=== PATIENT | female | born 1995 | race Caucasian/White ===

== ENCOUNTER 2020-06-07 16:33 | Emergency (ER) | payer OTHER, SELFPAY ==
[2020-06-07 16:48] VITALS: BP 126/75; PULSE 81; RESP 16; TEMP 37.3; O2SAT 99
--- NOTE | 2020-06-07 16:59 | ED.EAR ---
HPI - Ear Problem General Chief complaint: Ear Stated complaint: possible fungus in right ear Source: patient Mode of arrival: ambulatory Limitations: no limitations History of Present Illness HPI Narrative: Patient presents for evaluation of right-sided ear pain since the end of April. She indicates she had some muffled hearing yesterday but cleaned her ear out and that has since resolved. She denies any tinnitus or drainage from the ear. She states she had a Covid test performed on 05/26/2020 that was resulted on 05/30/2020 is positive. She previously had fever and a dry cough. She states she still has a lingering dry cough but denies fever. She has been quarantining at home. Related Data Allergies Allergy/AdvReac Type Severity Reaction Status Date / Time No Known Allergies Allergy Verified 06/07/20 16:58 Review of Systems Review of Systems: Narrative: CONSTITUTIONAL: Denies fever, chills, or sweats. EYES: Denies visual changes, redness, or discharge. ENT: Denies rhinorrhea, congestion, sore throat. Reports right ear pain CARDIOVASCULAR: Denies chest pain, palpitations, or edema. RESPIRATORY: Denies dyspnea. Reports cough GASTROINTESTINAL: Denies abdominal pain, nausea, vomiting, or diarrhea. GENITOURINARY: Denies dysuria or hematuria. SKIN: Denies rash or itching. MUSCULOSKELETAL: Denies back pain, joint pain, or myalgia. NEUROLOGIC: Denies headache, numbness, dizziness, or weakness. PSYCHIATRIC: Denies anxiety or depression. PMFSH Past Medical History Medical History (Updated 06/07/20 @ 17:05 by LARISSA Rice, ) Amenorrhea Obesity Surgical History Surgical History No pertinent past surgical history Family History Family History Mother No pertinent past medical history Father No pertinent past medical history Social History Social History Smoking status: Never smoker Alcohol intake: never Substance use: never Gender identity (if verbalized by the patient): Female Spiritual care concerns: No Exam Narrative: Exam Narrative: GENERAL: Well-appearing, well-nourished, and in no acute distress. HEAD: Normocephalic, atraumatic. EYES: PERRLA and EOMI. ENT: Nares clear, no rhinorrhea or epistaxis. Mucous membranes moist. Oropharynx without tonsillar hypertrophy exudate or other lesions. Left TM pearly singh nonbulging. Right ear canal is ceruminous. I cannot visualize the right TM which is erythematous, retracted with middle ear fluid present NECK: Supple. No adenopathy or masses. No carotid bruits or JVD CHEST: Clear to auscultation. No respiratory distress. No wheezes rales or rhonchi HEART: Regular rate and rhythm. No murmur heard. Normal peripheral pulses. ABDOMEN: Soft, nontender, nondistended, normal active bowel sounds. EXTREMITIES: Normal range of motion. No edema. SKIN: Warm, dry, no rash. NEURO: No focal deficits. Alert and oriented x3. PSYCH: Normal mood and affect. Course Course Emergency Course: This is a 24-year-old female with known recent positive Covid testing that presents with more than 2-week history of right-sided otalgia. Her symptoms related to Covid are improving. Does not appears any diagnostics are necessary at this time. Her physical exam is consistent with otitis media. Will prescribe Augmentin and Debrox have patient follow-up outpatient for further evaluation and treatment Vital Signs Vital signs: Vital Signs Temperature 37.3 C 06/07/20 16:48 Pulse Rate 81 06/07/20 16:48 Respiratory Rate 16 06/07/20 16:48 Blood Pressure 126/75 06/07/20 16:48 Pulse Oximetry 99 06/07/20 16:48 Temperature 37.3 C 06/07/20 16:48 Pulse Rate 81 06/07/20 16:48 Respiratory Rate 16 06/07/20 16:48 Blood Pressure 126/75 06/07/20 16:48 Pulse Oximetry 99 06/07/20
== END 2020-06-07 17:12 | disposition home or self-care (01) ==
PROVIDERS: Emergency Provider Nurse Practitioner
DX: H61.21 Impacted cerumen, right ear (principal); H66.90 Otitis media, unspecified, unspecified ear; E66.9 Obesity, unspecified; Z68.41 Body mass index [BMI] 40.0-44.9, adult
CPT/HCPCS: 99203; G0463

== ENCOUNTER 2020-08-06 20:22 | Emergency (ER) | payer OTHER, SELFPAY ==
[2020-08-06 20:25] VITALS: BP 121/80; PULSE 75; RESP 18; TEMP 36.4; O2SAT 98
[2020-08-06 20:55] LABS: Add Urine Microscopic? YES; Amorphous Sediment Urine Few; Appearance Urine Clear (Clear); Bacteria Urine Trace /hpf; Bilirubin Urine Negative (Negative); Blood Urine 3+ (Negative); Color Urine Yellow (Yellow); Glucose Urine UA Negative (Negative); Ketones Urine Negative (Negative); Leukocyte Esterase Ur 2+ LEU/UL (Negative); Mucus Urine Rare /lpf; Nitrate Urine Negative (Negative); Protein Urine 1+ mg/dL (Negative); Specific Grav Ur 1.026 (1.001-1.035); Squamous Epithelial Cell Urine Moderate /hpf (Few); Urobilinogen Urine Negative mg/dL (<2.0); WBC Urine 16-20 /hpf
--- NOTE | 2020-08-06 21:07 | ED.FEMALEGU ---
HPI - Female Genitourinary General Chief complaint: Urogenital-Female Stated complaint: noticed blood in urine starting today Time Seen by Provider: 08/06/20 20:30 Source: patient Mode of arrival: ambulatory Limitations: no limitations History of Present Illness HPI Narrative: This patient is 25 year old female who presents for evaluation of blood in her urine. She reports early today around 2p m she noticed her urine was slightly darker than normal. She reports she urinated again a few hours later, and she noticed what appeared to be small specks of red tissue in the toilet. She also reports seeing pink tinge in her pantyliner. She does not think it is vaginal in source. She has not had a menstrual cycle in 7 years from an unknown cause. She is starting to get this evaluated now because she finally has insurance. She denies abdominal pain, nausea, vomiting , or fever. She states she may have mild burning with urination. She denies any other complaints. Related Data Allergies Allergy/AdvReac Type Severity Reaction Status Date / Time No Known Allergies Allergy Mild Unverified 05/05/09 04:55 Review of Systems Review of Systems: All systems reviewed & are unremarkable except as noted in HPI and below PMFSH Past Medical History Medical History (Updated 08/07/20 @ 00:01 by Background Daemon) Abnormal menstrual cycle Surgical History Surgical History (Updated 08/06/20 @ 21:12 by Arielle Medrano MD) H/O adenoidectomy Family History Family History (Updated 03/18/14 @ 07:13 by DOCTOR UNKNOWN) Mother Hypertension Other Diabetes mellitus Social History Social History Smoking status: Never smoker Exam Const: General: alert Orientation/consciousness: patient oriented x3 Eyes: EOM: EOMs intact bilaterally Resp: Effort & Inspection: normal respiratory effort Auscultation: clear to auscultation bilaterally Cardio: Rate: regular rate Rhythm: regular rhythm Heart sounds: no murmurs GI: GI Palp: Yes Soft to palpation, No Tenderness to palpation present (GI) and No Guarding due to palpation present (GI) Auscultation: normal bowel sounds : Other: large clitorus, small vaginal meatus so unable to visualize cervix. there does appear to be bright red blood coming from meatus Course Reevaluation(s) Reevaluation #1: I have discussed with patient that her blood appears to be vaginal . She was given antibiotics due to abnormal urinalysis. Date: 08/06/20 Time: 22:19 Vital Signs Vital signs: Vital Signs Temperature 97.6 F 08/06/20 20:25 Pulse Rate 75 08/06/20 20:25 Respiratory Rate 18 08/06/20 20:25 Blood Pressure 121/80 08/06/20 20:25 Pulse Oximetry 98 08/06/20 20:25 Temperature 97.6 F 08/06/20 20:25 Pulse Rate 83 08/06/20 22:26 Respiratory Rate 20 08/06/20 22:26 Blood Pressure 136/77 08/06/20 22:26 Pulse Oximetry 95 08/06/20 22:26 MDM - Female Genitourinary Lab Data Result diagrams: 08/06/20 21:37 08/06/20 21:37 Labs: Lab Results 08/06/20 08/06/20 08/06/20 Range/Units 20:44 21:37 21:37 WBC 10.9 H (4.5-10.0) K/mm3 RBC 5.73 H (4.2-5.4) M/mm3 Hgb 15.5 H (12.0-15.0) g/dL Hct 46.9 (37.0-47.0) % MCV 81.8 (80-100) fl MCH 27.1 (26-34) pg MCHC 33.0 (32-36) g/dl RDW 13.8 (11.5-14.5) % Plt Count 416 H (150-375) k/mm3 MPV 9.9 (7.4-10.4) fl Immature Gran % (Auto) 0.3 (0-0.5) % Neut % (Auto) 61.0 (45.5-73.1) % Lymph % (Auto) 24.3 (18.3-44.2) % Haines % (Auto) 9.2 H (2.6-8.5) % Eos % (Auto) 4.2 (0-4.4) % Baso % (Auto) 1.0 (0.2-1.2) % Lymph # (Auto) 2.65 (0.9-3.2) K/mm3 Haines # (Auto) 1.0 H (0.1-0.6) K/mm3 Eos # (Auto) 0.5 H (0-0.3) K/mm3 Baso # (Auto) 0.1 (0.0-0.1) K/mm3 Abs Immat Gran (auto) 0.03 (0.00-0.031) K/mm3 Absolute Neuts (auto) 6.7 (1.3-6.7) K/mm3 Absolute Nucleated RBC 0.0 (0.0-0.012) K/mm3 Nucle
[2020-08-06] MEDS: CEPHALEXIN 500 MG CAPSULE PO (21:10)
--- NOTE | 2020-08-06 21:19 | PC.NURSE ---
patient medicated as ordered. advised to take remaining clothing off. set up for pelvic exam.
--- NOTE | 2020-08-06 21:42 | PC.NURSE ---
pelvic exam done. bed changed. patient given new blankets and ice water. blood sent to lab. denies other needs. has call light in reach.
[2020-08-06 21:46] LABS: Basophils Absolute Auto 0.1 K/mm3 (0.0-0.1); Eosinophils Absolute Auto 0.5 K/mm3 (0-0.3); Eosinophils Percent Auto 4.2 % (0-4.4); Hematocrit 46.9 % (37.0-47.0); Hemoglobin 15.5 g/dL (12.0-15.0); Immature Granulocyte Absolute 0.03 K/mm3 (0.00-0.031); Immature Granulocyte Percent A 0.3 % (0-0.5); Lymphocytes Absolute Auto 2.65 K/mm3 (0.9-3.2); Lymphocytes Percent Auto 24.3 % (18.3-44.2); Mean Corpuscular Hemoglobin 27.1 pg (26-34); Mean Corpuscular Volume 81.8 fl (80-100); Mean Platelet Volume 9.9 fl (7.4-10.4); Monocytes Percent Auto 9.2 % (2.6-8.5); Neutrophils Absolute Auto 6.7 K/mm3 (1.3-6.7); Platelet Count Result 416 k/mm3 (150-375); Red Blood Count 5.73 M/mm3 (4.2-5.4); Red Cell Distribution Width 13.8 % (11.5-14.5); White Blood Count 10.9 K/mm3 (4.5-10.0)
[2020-08-06 21:56] LABS: INR 0.9; Prothrombin Time 12.5 Seconds (11.1-14.7)
[2020-08-06 21:57] LABS: Partial Thromboplastin Time 30.6 SECONDS (22.3-36.8)
[2020-08-06 21:58] LABS: Alanine Aminotransferase 60 U/L (4-35); Albumin Level 4.6 g/dL (3.5-5.1); Alkaline Phosphatase 85 U/L (38-126); Anion Gap 7 mmol/L (8-16); Aspartate Amino Transferase 47 U/L (14-36); Bilirubin,Total 0.9 mg/dL (0.2-1.3); Blood Urea Nitrogen 12 mg/dL (7-17); Calcium 9.6 mg/dL (8.4-10.2); Carbon Dioxide 30 mmol/L (22-30); Chloride 103 mmol/L (98-107); Estimated CRCL calculation 88 ml/min; Estimated Glomerular Filt Rate > 60; Glucose 84 mg/dL (65-105); Potassium 4.1 mmol/L (3.4-5.0); Sodium 140 mmol/L (137-145)
[2020-08-06 22:26] VITALS: BP 136/77; PULSE 83; RESP 20; O2SAT 95
== END 2020-08-06 23:03 | disposition home or self-care (01) ==
PROVIDERS: Emergency Medicine; Emergency Provider General Practice
DX: N39.0 Urinary tract infection, site not specified (principal); N93.9 Abnormal uterine and vaginal bleeding, unspecified
CPT/HCPCS: 36415; 80053; 81001; 81025; 85025; 85610; 85730; 87086; 87088; 99284; A9270

== ENCOUNTER 2021-07-07 10:45 | Emergency (ER) | payer OTHER, SELFPAY ==
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
[2021-07-07 11:06] VITALS: BP 128/82; PULSE 77; RESP 20; TEMP 36.6; O2SAT 100
--- NOTE | 2021-07-07 14:25 | ECG_ITS ---
Measurements Intervals [place] Rate: 74 P: 24 LA: 134 QRS: 30 QRSD: 81 T: 34 QT: 363 QTc: 404 Interpretive Statements SINUS RHYTHM BASELINE ARTIFACT- I, III NORMAL ECG Electronically Signed On 07-07-2021 20:08:25 FROG SHAKER by John Sinha D.O.
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
[2021-07-07] MEDS: ACETAMINOPHEN 325 MG TABLET 650 MG PO (15:06)
[2021-07-07 15:30] VITALS: BP 130/79; PULSE 78; RESP 20; O2SAT 100
== END 2021-07-07 15:32 | disposition home or self-care (01) ==
PROVIDERS: Emergency Provider Emergency Medicine; PCP Family Medicine
DX: M25.562 Pain in left knee (principal); M25.521 Pain in right elbow; R07.89 Other chest pain; E66.9 Obesity, unspecified; Z68.41 Body mass index [BMI] 40.0-44.9, adult; V44.5XXA Car driver injured in collision with heavy transport vehicle or bus in traffic accident, initial encounter
CPT/HCPCS: 71046; 73080; 73564; 93005; 99284; A9270

== ENCOUNTER 2024-11-02 23:12 | Emergency (ER) | payer OTHER, SELFPAY ==
[2024-11-02 23:12] VITALS: BP 127/67; PULSE 66; RESP 17; TEMP 36.7; O2SAT 99
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
--- OUTSIDE RECORDS SUMMARY | 2024-11-02 23:14 | XMS_ITS | Clinical Summary ---
Author Organization [facility] Address [address] [place] [address] Care Team Providers Care Finance Business Partner Name Role Phone Ariel Reyes MD Primary Care Provider [phone] Source Comments [facility],non-owned Affiliates and Associated Physician Practices is amultiple site organization consisting of ambulatory clinics and hospital sitesin [place], [place], [place] and [place]. This disclosure is being madepursuant to the Care Everywhere program and may not contain all information available regarding this patient. Last updated 18.[facility] [place] Allergies Active Allergy Reactions Criticality Noted Date Comments Spironolactone Shortness of Breath High 06/03/2024 Medications * Be aware that medications may not be up to date on this document. Alwaysverify current medications with the patient. dextran 70-hypromellose (Artificial Tears) 0.1-0.3 % SOLN 2 drops by Ophthalmic route as needed 30 mL Active Social History Tobacco Use Types Packs/Day Years Used Date Smoking Tobacco: Never Smokeless Tobacco: Never Tobacco Cessation:Counseling Given: Not Answered Alcohol Use Standard Drinks/Week Comments Yes 0 (1 standard drink = 0.6 oz pur e alcohol) social AUDIT-C Answer Date Recorded Q1: How often do you have a drink containing alc ohol? Monthly or less 06/03/2024 Q2: How many drinks containi ng alcohol do you have on a typical day when you are drinking? 1 or 2 06/03/2024 Q3: How often do you have si x or more drinks on one occasion? Never 06/03/2024 Comments Unknown Sex and Gender Information Value Date Recorded Sex Assigned at Not on file Legal Sex Female 5:36 AM ICING AND GLAZE MAKER Gender Identity Not on file Sexual Orientation Not on file Last Filed Vital Signs Vital Sign Reading Time Taken Comments Blood Pressure 126/62 06/03/2024 10:55 PM ICING AND GLAZE MAKER Pulse 82 06/03/2024 10:55 PM ICING AND GLAZE MAKER Temperature 36.4 C (97.6 F) 06/03/2024 10:55 PM ICING AND GLAZE MAKER Respiratory Rate 17 06/03/2024 10:55 PM ICING AND GLAZE MAKER Oxygen Saturation 98% 06/03/2024 10:55 PM ICING AND GLAZE MAKER Inhaled Oxygen Concentration - - Weight 113.4 kg (250 lb) 06/03/2024 10:55 PM ICING AND GLAZE MAKER Height 165.1 cm (5' 5 ) 06/03/2024 10:55 PM ICING AND GLAZE MAKER Body Mass Index 41.6 06/03/2024 10:55 PM ICING AND GLAZE MAKER Plan of Treatment Health Maintenance Due Date Last Done Comments PAP SMEAR 1994 HIV SCREENING 2009 HEPATITIS C SCREENING 07/04/2012 DTAP/TDAP/TD VACCINES (1 - Tdap) 2013 HEPATITIS B VACCINE (1 of 3 - 19+ 3-dose series) 2013 COVID-19 VACCINE (3 - 2023-2 5 season) 2024 03/20/2021, 02/22/2021 DEPRESSION SCREENING 07/22/2024 INFLUENZA VACCINE (Season Ended) 2025 ZOSTER VACCINE (1 of 2) 2044 HIB VACCINE Aged Out No longer eligi ble based on patient's age to complete this topic HPV VACCINE Aged Out No longer eligi ble based on patient's age to complete this topic MENINGOCOCCAL (Group B) VACCINE SHARED DECISION-MAKING Aged Out No longer eligible based on patient's age to complete this topic MENINGOCOCCAL GROUPS A/C/Y/W VACCINE Aged Out No longer eligible b ased on patient's age to complete this topic PNEUMOCOCCAL VACCINE Aged Out No long er eligible based on patient's age to complete this topic Insurance [facility] [employer] Care Teams Finance Business Partner Relationship Specialty Start Date End Date Ariel Reyes MD [address] [address] PCP - General Family Medicine 06/04/24
--- OUTSIDE RECORDS SUMMARY | 2024-11-02 23:14 | XMS_ITS | Clinical Summary ---
Author Organization [facility] Address [address] [place] [address] Care Team Providers Care Machine Puller And Laster Name Role Phone Provider, None Primary Care Provider Unavailabl e Allergies Active Allergy Reactions Criticality Noted Date Comments Spironolactone Anaphylaxis 02/13/2023 Medications No known medications Active Problems No known active problems Social History Tobacco Use Types Packs/Day Years Used Date Smoking Tobacco: Never Assessed Comments No Sex and Gender Information Value Date Recorded Sex Assigned at Not on file Legal Sex Female 2:31 PM SUPERINTENDENT TRANSPORTATION Gender Identity Not on file Sexual Orientation Not on file Last Filed Vital Signs Vital Sign Reading Time Taken Comments Blood Pressure 119/75 02/13/2023 5:40 PM CDT Pulse 82 02/13/2023 5:40 PM CDT Temperature 36.4 C (97.6 F) 02/13/2023 5:40 PM CDT Respiratory Rate 18 02/13/2023 5:40 PM CDT Oxygen Saturation 98% 02/13/2023 5:40 PM CDT Inhaled Oxygen Concentration - - Weight 100.7 kg (222 lb) 02/13/2023 5:40 PM CDT Height 153.7 cm (5' 0.5 ) 02/13/2023 5:40 PM CDT Body Mass Index 42.64 02/13/2023 5:40 PM CDT Plan of Treatment Health Maintenance Due Date Last Done Comments Hepatitis C Virus (HCV) Screening 1994 Pap Smear 2015 Influenza Immunization (#1) 2024 SARS-COV-2 Immunization ( season) 2024 03/20/2021, 02/22/2021 Cervical Cancer Screening (CCS) 2024 HPV/Cotest 2024 Respiratory Syncytial Virus (RSV) Immunization (Adult) (1 - 1-dose 75+ series) 2069 Hepatitis B Immunization Completed 995, 1994, 1994 DTaP/Tdap/Td Immunization Discontinued 2018, 07/24/1996, 07/11/1995, Additional history exists TdaP Immunization Completed 06/16/2019 Meningococcal Immunization (ACWY) Aged Out No longer eligible based on patient's age to complete this topic Pneumococcal Immunization Combined Aged Out No longer eligible based on patient's age to complete this topic Rotavirus Immunization Aged Out No lo nger eligible based on patient's age to complete this topic Insurance Care Teams Machine Puller And Laster Relationship Specialty Start Date End Date Provider, None [place] PCP - General 02/20/23
--- NOTE | 2024-11-03 00:36 | ED_ITS ---
HPI - Wound/Laceration General Chief Complaint: Wound/Laceration Stated Complaint: cat bite Time Seen by Provider: 11/03/24 00:15 Source: patient Mode of arrival: ambulatory Limitations: no limitations History of Present Illness HPI narrative: This is a 29-year-old female who presents to the ED for chief complaint of possible cat bite to the lip and chin today. Patient states she was with her friend and her friend's cat nipped at her lip today while she was trying to give a hug. States that she was not sure if the wound was deep to the lip. Denies any further site of injury. Related Data Home Medications ?Medication ?Instructions ?Recorded ?Confirmed ?Last Taken ?Type dextroamphetamine-amphetamine 10 10 mg PO DAILY 02/28/24 04/29/24 Unknown History mg tablet (Adderall) norethindrone 1 mg-ethinyl 1 tablet PO DAILY 02/28/24 04/29/24 Unknown History estradiol 20 mcg (24)-iron 75 mg (4) tablet (Blisovi 24 Fe) Allergies Allergy/AdvReac Type Severity Reaction Status Date / Time spironolactone Allergy Intermediate Difficulty Verified 11/02/24 23:35 Breathing Review of Systems Review of Systems: All systems as dictated in HPI [facility] Past Medical History Medical History Abnormal menstrual cycle Amenorrhea Bloating GERD (gastroesophageal reflux disease) IBS (irritable bowel syndrome) Obesity Surgical History Surgical History H/O adenoidectomy No pertinent past surgical history Family History Family History Mother No pertinent past medical history Father No pertinent past medical history Mother Hypertension Other Diabetes mellitus Social History Social History Smoking status: Never smoker Alcohol intake: never Substance use: never Gender identity (if verbalized by the patient): Female Spiritual care concerns: No Exam Narrative: GENERAL: Well-appearing, well-nourished, and in no acute distress. ENT: Mild very superficial abrasions to the lower lip and chin. No evidence of deep puncture wound. Nares clear, no rhinorrhea or epistaxis. Mucous membranes moist. Oropharynx without tonsillar hypertrophy exudate or other lesions. MSK: Normal range of motion. No edema. SKIN: Warm, dry, no rash. NEURO: Alert and oriented x4. No focal deficits. PSYCH: Normal mood and affect. Course Vital Signs Vital signs: Vital Signs Temperature 98.1 F 11/02/24 23:12 Pulse Rate 66 11/02/24 23:12 Respiratory Rate 17 11/02/24 23:12 Blood Pressure 127/67 11/02/24 23:12 Pulse Oximetry 99 11/02/24 23:12 Oxygen Delivery Room Air 11/02/24 23:12 Temperature 98.1 F 11/02/24 23:12 Pulse Rate 89 11/03/24 01:02 Respiratory Rate 18 11/03/24 01:02 Blood Pressure 131/81 11/03/24 01:02 Pulse Oximetry 99 11/03/24 01:02 Oxygen Delivery Room Air 11/02/24 23:12 MDM - Wound/Laceration MDM Narrative Medical decision making narrative: This is a 29-year-old female who presents to the ED for chief complaint of possible cat bite to the lip. Vitals are normal. Exam remarkable for very superficial abrasions to the lower lip and chin. Patient will be given Augmentin for prophylaxis although highly doubt any infectious process should occur given the superficial nature of wounds. She is up-to-date on tetanus. The cat was up-to-date on its shots according to patient. Patient will be discharged in stable condition. Supportive measures discussed and return precautions given. Patient is understanding and agreeable with plan for discharge with PCP follow-up. Discharge Plan Discharge Clinical Impression: Cat bite Patient Disposition: Home Condition: Stable Instructions: Antibiotic Form Additional Instructions: Exam today is reassuring overall. Please take antibiotics for bacterial prevention. If you have any new or worsening symptoms please return to the ER for further evaluation. Patient Language: Tajik Prescriptions: New amoxicillin-pot clavulanate 875-125 mg tablet 1 tablet PO Q12H Qty: 10 0RF No Action norethindrone-e.estradiol-iron [Blisovi 24 Fe] 1 mg-20 mcg (24)/75 mg (4) tablet 1 tablet PO DAILY dextroamphetamine-amphetamine [Adderall] 10 mg tablet 10 mg PO DAILY omeprazole 20 mg capsule,delayed release(DR/EC) 20 mg PO BID 30 Days Qty: 60 5RF Follow-up/Referrals: Ariel Reyes MD [Primary Care Provider] - Time of Disposition: 00:39
--- OUTSIDE RECORDS SUMMARY | 2024-11-03 00:46 | XMS_ITS | Clinical Summary ---
Author Organization [facility] Address [address] [place] [address] Care Team Providers Care Homeowner Association Manager Name Role Phone Ariel Reyes MD Primary Care Provider [phone] Source Comments [facility],non-owned Affiliates and Associated Physician Practices is amultiple site organization consisting of ambulatory clinics and hospital sitesin [place], [place], [place] and [place]. This disclosure is being madepursuant to the Care Everywhere program and may not contain all information available regarding this patient. 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 Gender Identity Not on file Sexual Orientation Not on file Last Filed Vital Signs Vital Sign Reading Time Taken Comments Blood Pressure 126/62 06/03/2024 10:55 PM SALES OPERATIONS ASSOCIATE Pulse 82 06/03/2024 10:55 PM SALES OPERATIONS ASSOCIATE Temperature 36.4 C (97.6 F) 06/03/2024 10:55 PM SALES OPERATIONS ASSOCIATE Respiratory Rate 17 06/03/2024 10:55 PM SALES OPERATIONS ASSOCIATE Oxygen Saturation 98% 06/03/2024 10:55 PM SALES OPERATIONS ASSOCIATE Inhaled Oxygen Concentration - - Weight 113.4 kg (250 lb) 06/03/2024 10:55 PM SALES OPERATIONS ASSOCIATE Height 165.1 cm (5' 5 ) 06/03/2024 10:55 PM SALES OPERATIONS ASSOCIATE Body Mass Index 41.6 06/03/2024 10:55 PM SALES OPERATIONS ASSOCIATE Plan of Treatment Health Maintenance Due Date [...] patient's age to complete this topic Insurance [facility] PAYOR GENERIC Care Teams Homeowner Association Manager Relationship Specialty Start Date End Date Ariel Reyes MD [address] [address] PCP - General Family Medicine 06/04/24
--- OUTSIDE RECORDS SUMMARY | 2024-11-03 00:46 | XMS_ITS | Encounter Summary ---
Author Organization [facility] Address [address] [place] [address] Phone Care Team Providers Care Review Consultant Name Role Phone Provider, None Primary Care Provider Unavailabl e Encounter Details Date Type Department Care Team (Late st Contact Info) Description 02/15/2023 Telephone [facility] [address] [place] [address] Ayanna Miller APRN, MACHINING DEPARTMENT SUPERVISOR [address] [place] [address] Social History Tobacco Use Types Packs/Day Years Used Date Smoking Tobacco: Never Assessed Comments No Sex and Gender Information Value Date Recorded Sex Assigned at Not on file 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
--- OUTSIDE RECORDS SUMMARY | 2024-11-03 00:46 | XMS_ITS | Clinical Summary ---
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
[2024-11-03 01:02] VITALS: BP 131/81; PULSE 89; RESP 18; O2SAT 99
== END 2024-11-03 01:03 | disposition home or self-care (01) ==
LOC: ANHED 11-03 00:45
PROVIDERS: Emergency Provider Physician Assistant; PCP Family Medicine
DX: S01.551A Open bite of lip, initial encounter (principal); K21.9 Gastro-esophageal reflux disease without esophagitis; K58.9 Irritable bowel syndrome, unspecified; E66.9 Obesity, unspecified; Z68.42 Body mass index [BMI] 45.0-49.9, adult; W55.01XA Bitten by cat, initial encounter
CPT/HCPCS: 99283

== ENCOUNTER 2025-03-08 09:41 | Outpatient (CLI) | payer OTHER, SELFPAY ==
--- NOTE | ~2025-03-08 | XR_ITS ---
AP and lateral views of the right hip Clinical history: Pain Findings: No acute fracture or dislocation is seen. Osseous alignment is anatomic. Right hip joint is intact. Soft tissues are unremarkable. Impression: No significant abnormality is seen. Reviewed, dictated and finalized at location M. Impression: No significant abnormality is seen.
--- NOTE | ~2025-03-08 | XR_ITS ---
Lumbosacral Spine: AP and lateral views Clinical History: Pain Findings: The normal lordotic curve is maintained. The vertebral bodies and posterior elements are i ntact. The intervertebral disc spaces are preserved. Mild facet joint degenerative changes are prese nt throughout the lumbar spine. The sacroiliac joints are normally outlined. Impression: Mild facet arthropathy throughout the lumbar spine. Reviewed, dictated and finalized at location . Impression: Mild facet arthropathy throughout the lumbar spine.
== END 2025-03-08 09:42 | disposition home or self-care (01) ==
LOC: MICIMG 09:44
PROVIDERS: PCP Family Medicine; Visit Provider Nurse Practitioner Family
DX: M54.50 Low back pain, unspecified (principal); M25.551 Pain in right hip; M25.561 Pain in right knee
CPT/HCPCS: 72100; 73502; 73562

== ENCOUNTER 2025-05-27 10:05 | Outpatient (CLI) | payer OTHER, SELFPAY ==
--- NOTE | ~2025-05-27 | XR_ITS ---
EXAMINATION: XR abdomen/kub 1V COMPARISON: No comparisons available. HISTORY: Nausea, vomiting, abd pain FINDINGS: No free air. No abnormal calcifications No acute osseous abnormality. Impression: 1. No acute abnormality. EXAMINATION: XR abdomen/kub 1V, 05/27/2025 10:13 MANAGER DIVISION HISTORY: Nausea, vomiting, abd pain COMPARISON: No comparisons available. Technique: 3 view. Findings: Bowel gas pattern unremarkable. No obstruction. No free air. No abnormal calcifications No acute osseous abnormality. Impression: 1. No acute abnormality. EXAMINATION: XR abdomen/kub 1V, 05/27/2025 10:13 MANAGER DIVISION HISTORY: Nausea, vomiting, abd pain COMPARISON: No comparisons available. Technique: 3 view. Findings: Bowel gas pattern unremarkable. No obstruction. No free air. No abnormal calcifications No acute osseous abnormality. Impression: 1. No acute abnormality. EXAMINATION: XR abdomen/kub 1V, 05/27/2025 10:13 MANAGER DIVISION HISTORY: Nausea, vomiting, abd pain COMPARISON: No comparisons available. Technique: 3 view. Findings: Bowel gas pattern unremarkable. No obstruction. No free air. No abnormal calcifications No acute osseous abnormality. Impression: 1. No acute abnormality. EXAMINATION: XR abdomen/kub 1V, 05/27/2025 10:13 MANAGER DIVISION HISTORY: Nausea, vomiting, abd pain COMPARISON: No comparisons available. Technique: 3 view. Findings: Bowel gas pattern unremarkable. No obstruction. No free air. No abnormal calcifications No acute osseous abnormality. Impression: 1. No acute abnormality. Reviewed, dictated and finalized at location P. GER DIVISION Impression: 1. No acute abnormality. EXAMINATION: XR abdomen/kub 1V, 05/27/2025 10:13 MANAGER DIVISION HISTORY: Nausea, vomiting, abd pain COMPARISON: No comparisons available. Technique: 3 view. Findings: Bowel gas pattern unremarkable. No obstruction. No free air. No abnormal calcifications No acute osseous abnormality. Impression: 1. No acute abnormality. EXAMINATION: XR abdomen/kub 1V, 05/27/2025 10:13 MANAGER DIVISION HISTORY: Nausea, vomiting, abd pain COMPARISON: No comparisons available. Technique: 3 view. Findings: Bowel gas pattern unremarkable. No obstruction. No free air. No abnormal calcifications No acute osseous abnormality. Impression: 1. No acute abnormality. EXAMINATION: XR abdomen/kub 1V, 05/27/2025 10:13 MANAGER DIVISION HISTORY: Nausea, vomiting, abd pain COMPARISON: No comparisons available. Technique: 3 view. Findings: Bowel gas pattern unremarkable. No obstruction. No free air. No abnormal calcifications No acute osseous abnormality. Impression: 1. No acute abnormality. EXAMINATION: XR abdomen/kub 1V, 05/27/2025 10:13 MANAGER DIVISION HISTORY: Nausea, vomiting, abd pain COMPARISON: No comparisons available. Technique: 3 view. Findings: Bowel gas pattern unremarkable. No obstruction. No free air. No abnormal calcifications No acute osseous abnormality. Impression: 1. No acute abnormality.
== END 2025-05-27 10:06 | disposition home or self-care (01) ==
LOC: MICIMG 10:09
PROVIDERS: PCP Family Medicine; Visit Provider Nurse Practitioner Family
DX: R11.2 Nausea with vomiting, unspecified (principal); R10.9 Unspecified abdominal pain
CPT/HCPCS: 74018